=== PATIENT | female | born 2005 | race Caucasian/White ===

== ENCOUNTER 2024-02-25 19:13 | Emergency (ER) | payer OTHER | END 2024-02-25 20:34 | disposition home or self-care (01) | LOC: JD.ED 19:13 | DX: S80.12XA Contusion of left lower leg, initial encounter (principal); X58.XXXA Exposure to other specified factors, initial encounter | CPT/HCPCS: 73590-26-LT; 73590-LT; 73610-26-LT; 73610-LT; 99283 ==